=== PATIENT | male | born 1995 | race Caucasian/White ===

== ENCOUNTER 2019-10-05 04:06 | Emergency (ER) | payer MEDICAID ==
[~2019-10-05] VITALS: Ht 170.2 cm; Wt 100.0 kg
[2019-10-05] MEDS ORDERED: SODIUM CHLORIDE 0.9% 1,000 ML IV ONE (04:45)
[2019-10-05 04:47] VITALS: BP 143/77
== END 2019-10-05 05:51 | disposition home or self-care (01) ==
LOC: ER 04:06
DX: R42 Dizziness and giddiness (principal)
CPT/HCPCS: 93005; 99283; J7030